=== PATIENT | male | born 1950 | race Caucasian/White ===

== ENCOUNTER → 2018-01-04 08:02 | Outpatient (CLI) | payer MEDICARE, OTHER, SELFPAY ==
[2018-01-04 10:02] LABS: Prostate Specific Antigen 0.513 ng/mL (0.10-4.00)
== END ==
PROVIDERS: PCP Family Medicine; Visit Provider Urology
DX: N40.1 Benign prostatic hyperplasia with lower urinary tract symptoms (principal)
CPT/HCPCS: 36415; 84153